=== PATIENT | male | born 1960 | race African-American/Black ===

== ENCOUNTER 2019-12-04 16:59 | Emergency (ER) | payer SELFPAY ==
[~2019-12-04] VITALS: Ht 170.2 cm; Wt 68.0 kg
[2019-12-04 18:14] LABS: BASOPHILS % 0.8 % (0.0-2.0); EOSINOPHILS % 0.5 % (0.0-5.0); HEMATOCRIT. 40.7 % (42.0-52.0); HEMOGLOBIN. 13.8 g/dL (14.0-18.0); LYMPHOCYTES % 17.6 % (20.0-50.0); MEAN CORPUSCULAR HEMOGLOBIN 29.9 pg (28.0-32.0); MEAN PLATELET VOLUME 8.3 fl (7.4-10.4); MONOCYTES % 13.2 % (2.0-8.0); NEUTROPHILS % 67.9 % (40.0-76.0); PLATELET 232 x1000/uL (130-400); RED BLOOD CELL COUNT 4.63 mill/uL (4.7-6.1); RED CELL DISTRIBUTION WIDTH 15.9 % (11.6-14.6)
[2019-12-04 18:20] LABS: CHLORIDE 101 mEq/L (98-107)
[2019-12-04 18:25] LABS: ETHANOL BLOOD 39 mg/dL
[2019-12-04 18:58] LABS: CLARITY URINE CLEAR (CLEAR); COLOR URINE YELLOW (YELLOW); KETONES URINE TRACE (NEGATIVE); LEUKOCYTE ESTERASE URINE TRACE (NEGATIVE); NITRITE URINE NEGATIVE (NEGATIVE); OCCULT BLOOD URINE NEGATIVE (NEGATIVE); PH URINE 5.5 (4.5-8.0); PROTEIN URINE TRACE (NEGATIVE); SPECIFIC GRAVITY URINE 1.022 (1.005-1.030)
[2019-12-04 19:10] LABS: *AMPHETAMINES SCREEN URINE PRESUMTIVE POSITIVE (NEGATIVE); *BARBITURATES SCREEN URINE NEGATIVE (NEGATIVE); *BENZODIAZEPINES SCREEN URINE NEGATIVE (NEGATIVE); *COCAINE SCREEN URINE NEGATIVE (NEGATIVE); METHADONE URINE SCREEN NEGATIVE (NEGATIVE); OPIATES URINE SCREEN NEGATIVE (NEGATIVE)
[2019-12-04 19:11] LABS: CANNABINOID URINE SCREEN PRESUMTIVE POSITIVE (NEGATIVE); PHENCYCLIDINE URINE SCREEN NEGATIVE (NEGATIVE)
[2019-12-04] MEDS ORDERED: LORAZEPAM 0.5MG TABLET PO ONE (20:15)
[2019-12-04] MEDS: HYDROCORTISONE 1% OINT 28.35GM TOP SCH (21:30)
[2019-12-04] MEDS ORDERED: CEPHALEXIN 250MG CAPSULE PO ONE (21:45)
[2019-12-05] MEDS: HYDROCORTISONE 1% OINT 28.35GM TOP SCH ×3 (08:00→22:00)
[2019-12-05] MEDS ORDERED: IBUPROFEN 600MG TABLET PO ONE (17:30)
[2019-12-06] MEDS ORDERED: IBUPROFEN 600MG TABLET PO ONE (08:15)
[2019-12-06 10:00] VITALS: BP 132/78
== END 2019-12-06 09:45 | disposition home or self-care (01) ==
LOC: ER 16:59
DX: T43.621A Poisoning by amphetamines, accidental (unintentional), initial encounter (principal); R44.3 Hallucinations, unspecified; Z59.0 Homelessness; Y92.89 Other specified places as the place of occurrence of the external cause
CPT/HCPCS: 36415; 80053; 80305; 80307; 80320; 80329; 81003; 85025; 99285; G0480